=== PATIENT | male | born 1985 | race Caucasian/White ===

== ENCOUNTER 2016-08-11 12:04 | Emergency (ER) | payer MEDICAID ==
[~2016-08-11] VITALS: Ht 185.4 cm; Wt 77.1 kg
[2016-08-11 13:09] VITALS: BP 132/74
[2016-08-11] MEDS ORDERED: HYDROmorphone HCL 2 MG/ML VL IM ONE (13:30)
[2016-08-11] MEDS ORDERED: ONDANSETRON HCL 4 MG/2 ML VIAL IM ONE (13:30)
== END 2016-08-11 14:12 | disposition home or self-care (01) ==
LOC: ER 12:06
DX: J01.90 Acute sinusitis, unspecified (principal); F17.210 Nicotine dependence, cigarettes, uncomplicated
CPT/HCPCS: 96372; 99284; J1170; J2405

== ENCOUNTER 2016-08-15 19:09 | Emergency (ER) | payer MEDICAID ==
[~2016-08-15] VITALS: Ht 185.4 cm; Wt 77.1 kg
[2016-08-15 19:28] VITALS: BP 145/73
[2016-08-15 20:05] LABS: Basophils # (auto) 0.1 uL; Basophils % (auto) 0.8 % (0.0-2.0); Eosinophils # (auto) 0.2 uL; Eosinophils % (auto) 1.5 % (0.0-7.0); Hematocrit 48.3 % (41.0-53.0); Hemoglobin 15.6 g/dL (13.5-17.5); Lymphocytes # (auto) 2.7 uL; Lymphocytes % (auto) 22.4 % (10.0-50.0); Mean Corpuscular Hgb Conc. 32.2 g/dL (32.0-36.0); Mean Corpuscular Volume 96.1 fL (80.0-100.0); Monocytes # (auto) 0.7 uL; Monocytes % (auto) 6.1 % (0.0-12.0); Neutrophils # (auto) 8.4 uL; Neutrophils % (auto) 69.2 % (37.0-80.0); Platelet Count (auto) 318 10^3/uL (140-450); Red Cell Distribution Width 13.6 % (11.6-16.0); White Blood Cell 12.2 10^3/uL (4.4-10.8)
[2016-08-15 20:56] LABS: Albumin 4.1 g/dL (3.4-5.0); Calcium 8.8 mg/dL (8.5-10.1); Potassium 3.8 mmol/L (3.5-5.1)
[2016-08-15 20:59] LABS: BUN/Creatinine Ratio 9.7
[2016-08-15 21:25] LABS: Bilirubin, Total 0.4 mg/dL (0.2-1.0); Total Protein 7.8 g/dL (6.4-8.2)
== END 2016-08-16 04:51 | disposition left against medical advice (07) ==
LOC: ER 19:12
DX: R04.0 Epistaxis (principal); R51 Headache; Z53.21 Procedure and treatment not carried out due to patient leaving prior to being seen by health care provider
CPT/HCPCS: 36415; 70450; 80053; 85025

== ENCOUNTER 2016-08-18 21:28 | Emergency (ER) | payer MEDICAID ==
[~2016-08-18] VITALS: Ht 185.4 cm; Wt 77.1 kg
[2016-08-18 22:00] VITALS: BP 116/74
== END 2016-08-19 04:20 | disposition left against medical advice (07) ==
LOC: ER 21:34
DX: M25.561 Pain in right knee (principal); Z53.21 Procedure and treatment not carried out due to patient leaving prior to being seen by health care provider
CPT/HCPCS: 73700

== ENCOUNTER 2016-08-19 12:20 | Emergency (ER) | payer MEDICAID ==
[~2016-08-19] VITALS: Ht 185.4 cm; Wt 77.1 kg
[2016-08-19 12:26] VITALS: BP 148/73
[2016-08-19] MEDS ORDERED: methylPREDNISolone SOD SUCC 125 MG/2 ML VL IM ONE (14:30)
[2016-08-19] MEDS ORDERED: KETOROLAC TROMETH 60MG/2ML VIAL IM ONE (14:30)
== END 2016-08-19 15:02 | disposition home or self-care (01) ==
LOC: ER 12:20
DX: S80.01XA Contusion of right knee, initial encounter (principal); G89.29 Other chronic pain; M10.9 Gout, unspecified; F17.210 Nicotine dependence, cigarettes, uncomplicated; W22.03XA Walked into furniture, initial encounter; Y93.89 Activity, other specified; Y99.8 Other external cause status; Y92.89 Other specified places as the place of occurrence of the external cause
CPT/HCPCS: 96372; 99284; J1885; J2930

== ENCOUNTER 2016-08-30 15:58 | Emergency (ER) | payer MEDICAID ==
[~2016-08-30] VITALS: Ht 185.4 cm; Wt 77.1 kg
[2016-08-30 16:28] VITALS: BP 136/84
[2016-08-30] MEDS ORDERED: KETOROLAC TROMETH 60MG/2ML VIAL IM ONE (17:00)
== END 2016-08-30 18:05 | disposition home or self-care (01) ==
LOC: ER 16:02
DX: M79.89 Other specified soft tissue disorders (principal); F17.210 Nicotine dependence, cigarettes, uncomplicated
CPT/HCPCS: 73700; 93971; 96372; 99284; J1885

== ENCOUNTER 2016-10-21 10:54 | Emergency (ER) | payer MEDICAID ==
[~2016-10-21] VITALS: Ht 185.4 cm; Wt 81.6 kg
[2016-10-21 11:02] VITALS: BP 130/90
== END 2016-10-21 11:41 | disposition home or self-care (01) ==
LOC: ER 10:54
DX: S46.911A Strain of unspecified muscle, fascia and tendon at shoulder and upper arm level, right arm, initial encounter (principal); X50.9XXA Other and unspecified overexertion or strenuous movements or postures, initial encounter; F17.210 Nicotine dependence, cigarettes, uncomplicated; X50.0XXA Overexertion from strenuous movement or load, initial encounter; Y93.B9 Activity, other involving muscle strengthening exercises; Y99.8 Other external cause status; Y92.89 Other specified places as the place of occurrence of the external cause
CPT/HCPCS: 73030

== ENCOUNTER 2016-12-19 17:21 | Emergency (ER) | payer MEDICAID ==
[~2016-12-19] VITALS: Ht 185.4 cm; Wt 81.6 kg
[2016-12-19 18:09] LABS: Basophils # (auto) 0 uL; Basophils % (auto) 0.3 % (0.0-2.0); Eosinophils # (auto) 0.2 uL; Eosinophils % (auto) 1.4 % (0.0-7.0); Hemoglobin 14.9 g/dL (13.5-17.5); Lymphocytes # (auto) 1.6 uL; Lymphocytes % (auto) 13.4 % (10.0-50.0); Mean Corpuscular Hemoglobin 32.7 pg (28.0-32.0); Mean Corpuscular Hgb Conc. 33.8 g/dL (32.0-36.0); Mean Corpuscular Volume 96.6 fL (80.0-100.0); Monocytes # (auto) 0.7 uL; Neutrophils # (auto) 9.5 uL; Neutrophils % (auto) 78.9 % (37.0-80.0); Platelet Count (auto) 285 10^3/uL (140-450); Red Cell Distribution Width 13.6 % (11.6-16.0); White Blood Cell 12.1 10^3/uL (4.4-10.8)
[2016-12-19 18:38] LABS: Albumin 4.4 g/dL (3.4-5.0); Alkaline Phosphatase 74 U/L (45-117); Anion Gap 8 (5-15); Aspartate Aminotransferase 26 U/L (15-37); BUN/Creatinine Ratio 11.8; Bilirubin, Total 0.9 mg/dL (0.2-1.0); Blood Urea Nitrogen 8 mg/dL (7-18); Carbon Dioxide 27 mmol/L (21-32); Chloride 103 mmol/L (98-107); GFR African American 176 mL/min; GFR Non-African American 146 mL/min; Glucose 96 mg/dL (74-106); Potassium 4.2 mmol/L (3.5-5.1); Sodium 138 mmol/L (136-145); Total Protein 7.3 g/dL (6.4-8.2)
[2016-12-19] MEDS ORDERED: KETOROLAC TROMETH 60MG/2ML VIAL IM ONE (19:00)
[2016-12-19] MEDS ORDERED: KETOROLAC TROMETH 30 MG/ML 1ML VIAL IV ONE (19:15)
[2016-12-19 20:22] VITALS: BP 131/59
== END 2016-12-19 20:32 | disposition home or self-care (01) ==
LOC: ER 17:26
DX: R07.89 Other chest pain (principal); F17.210 Nicotine dependence, cigarettes, uncomplicated
CPT/HCPCS: 36415; 71020; 80053; 84484; 85025; 93005; 96374; 99285; J1885

== ENCOUNTER 2017-01-18 16:26 | Emergency (ER) | payer MEDICAID ==
[~2017-01-18] VITALS: Ht 185.4 cm; Wt 81.6 kg
[2017-01-18 16:38] VITALS: BP 131/84
[2017-01-18] MEDS ORDERED: KETOROLAC TROMETH 60MG/2ML VIAL IM ONE (21:15)
== END 2017-01-18 19:41 | disposition left against medical advice (07) ==
LOC: ER 16:35
DX: S80.01XA Contusion of right knee, initial encounter (principal); M54.2 Cervicalgia; M79.644 Pain in right finger(s); F17.210 Nicotine dependence, cigarettes, uncomplicated; W17.89XA Other fall from one level to another, initial encounter; Y93.89 Activity, other specified; Y99.8 Other external cause status; Y92.89 Other specified places as the place of occurrence of the external cause
CPT/HCPCS: 29505; 72040; 73562; 99284; J1885

== ENCOUNTER 2017-03-04 10:44 | Emergency (ER) | payer MEDICAID ==
[~2017-03-04] VITALS: Ht 185.4 cm; Wt 81.6 kg
[2017-03-04 10:50] VITALS: BP 119/70
[2017-03-04] MEDS ORDERED: IBUPROFEN 800 MG TAB PO ONE (13:00)
[2017-03-04] MEDS ORDERED: KETOROLAC TROMETH 60MG/2ML VIAL IM ONE (13:00)
== END 2017-03-04 13:06 | disposition home or self-care (01) ==
LOC: ER 11:08
DX: S83.91XA Sprain of unspecified site of right knee, initial encounter (principal); S80.01XA Contusion of right knee, initial encounter; F17.210 Nicotine dependence, cigarettes, uncomplicated; W01.0XXA Fall on same level from slipping, tripping and stumbling without subsequent striking against object, initial encounter; Y93.89 Activity, other specified; Y92.89 Other specified places as the place of occurrence of the external cause; Y99.8 Other external cause status
CPT/HCPCS: 73562; 96372; 99284; J1885

== ENCOUNTER 2017-08-18 13:18 | Emergency (ER) | payer MEDICAID ==
[~2017-08-18] VITALS: Ht 185.4 cm; Wt 81.6 kg
[2017-08-18 13:23] VITALS: BP 145/84
[2017-08-18] MEDS ORDERED: KETOROLAC TROMETH 60MG/2ML VIAL IM ONE (15:45)
== END 2017-08-18 15:56 | disposition home or self-care (01) ==
LOC: ER 13:21
DX: S39.012A Strain of muscle, fascia and tendon of lower back, initial encounter (principal); F17.210 Nicotine dependence, cigarettes, uncomplicated; M51.26 Other intervertebral disc displacement, lumbar region; X50.0XXA Overexertion from strenuous movement or load, initial encounter; Y93.89 Activity, other specified; Y92.89 Other specified places as the place of occurrence of the external cause; Y99.8 Other external cause status
CPT/HCPCS: 72131; 96372; 99284; J1885

== ENCOUNTER 2019-01-30 10:40 | Emergency (ER) | payer MEDICAID ==
[~2019-01-30] VITALS: Ht 185.4 cm; Wt 82.1 kg
[2019-01-30 10:51] VITALS: BP 116/67
[2019-01-30] MEDS ORDERED: IBUPROFEN 600 MG TAB PO ONE (11:15)
== END 2019-01-30 11:33 | disposition home or self-care (01) ==
LOC: ER 10:44
DX: L73.8 Other specified follicular disorders (principal); F17.210 Nicotine dependence, cigarettes, uncomplicated

== ENCOUNTER 2019-04-03 09:47 | Emergency (ER) | payer MEDICAID ==
[~2019-04-03] VITALS: Ht 185.4 cm; Wt 84.4 kg
[2019-04-03 10:44] VITALS: BP 138/73
[2019-04-03] MEDS ORDERED: KETOROLAC TROMETH 60MG/2ML VIAL IM ONE (11:30)
[2019-04-03] MEDS ORDERED: METHOCARBAMOL 500 MG TAB PO ONE (11:30)
== END 2019-04-03 12:15 | disposition home or self-care (01) ==
LOC: ER 09:50
DX: M54.12 Radiculopathy, cervical region (principal); M54.5 Low back pain; F17.210 Nicotine dependence, cigarettes, uncomplicated
CPT/HCPCS: 72040; 96372; 99283; J1885